=== PATIENT | male | born 1960 | race Caucasian/White ===

== ENCOUNTER → 2025-07-25 | Outpatient (CLI) | payer SELFPAY, OTHER ==
--- OUTSIDE RECORDS SUMMARY | 2025-07-25 07:04 | XMS RPT_ITS | CCD ---
Author Organization [facility] Care Team Providers Care Employee'S Representative Name Role Phone Brody NAVARRO, Fuad Lopez Unavailable Fuad Potts MD Unavailable [phone] [facility], . [facility] office Unavailable Dionne SENIOR CLERK, Delmis Unavailable Farhad SENIOR CLERK, Linda Unavailable Unavailable Sanchez NAVARRO, Wu Anand Unavailable Rosie NORMAN, Bony Laura Unavailable Kaye DUCKWORTH, Nicole Lopez Unavailable Unavaila ble Mimi DUCKWORTH, Claribel Y Unavailable Unavailable Agarwal SENIOR CLERK, Corina Unavailable Unavailable Fauzia SENIOR CLERK, Gita Unavailable Unavailab le Vess SENIOR CLERK, Neilee L Unavailable Unavailable Wengerd SENIOR CLERK, Amena Unavailable Unavailabl e [place] SENIOR CLERK, Denae N Unavailable Unavaila ble Unavailable Unavailable WANG ARRIOLA DR Admitting Unavailable WANG ARRIOLA DR Primary Care Unavailable WANG ARRIOLA DR Attending Unavailable VACCARIELLO, FUAD Consulting Unavailable PROVIDER, UNKNOWN Consulting Unavailable PROVIDER, UNKNOWN Consulting Unavailable PROVIDER, UNKNOWN Consulting Unavailable WANG ARRIOLA DR Primary Care Unavailable WANG ARRIOLA DR Attending Unavailable WANG ARRIOLA DR Admitting Unavailable VACCARIELLO, FUAD Consulting Unavailable PROVIDER, UNKNOWN Consulting Unavailable PROVIDER, UNKNOWN Consulting Unavailable PROVIDER, UNKNOWN Consulting Unavailable WANG ARRIOLA DR Admitting Unavailable WANG ARRIOLA DR Primary Care Unavailable WANG ARRIOLA DR Attending Unavailable VACCJOHNNY, FUAD Consulting Unavailable PROVIDER, UNKNOWN Consulting Unavailable PROVIDER, UNKNOWN Consulting Unavailable PROVIDER, UNKNOWN Consulting Unavailable MY, ARGELIA PAC Admitting Unavailable MY, ARGELIA PAC Primary Care Unavailable MY, ARGELIA PAC Attending Unavailable VACCARIELLO, FUAD Consulting Unavailable PROVIDER, UNKNOWN Consulting Unavailable PROVIDER, UNKNOWN Consulting Unavailable PROVIDER, UNKNOWN Consulting Unavailable Allergies Allergy Classification Reported Allergen(s) Allergy Type Date of Onset Reaction(s) Facility (4 sources) Morphine Drug Allergy Nausea [facility]; [facility] Medications Completed/Discontinued Medications Medication Drug Class(es) Dates Sig (Normalized) Sig (Original) amoxicillin 875 mg / clavulanate 125 mg oral tablet (4 sources) Penicillin-class Antibacterial Start: 11-26-2021 End: 12-06-2021 take 1 tablet by mouth twice daily Amoxicillin-Pot Clavulanate 875-125 MG Oral Tablet ; 1 (one) Tablet BID for 10 days Quantity: 20 {Tablet} Refills: 0 Ordered: 26-Nov-2021 MEERSON Velez Start: 26-Nov-2021 End: 06-Dec-2021 Status: Inactive warfarin sodium 5 mg oral tablet (4 sources) Vitamin K Antagonist Start: 06-24-2015 End: 11-26-2021 take 1 tablet by mouth once daily COUMADIN, 5MG (Oral Tablet) ; 1 Tablet daily or as directed for 0 days Quantity: 30 {Tablet} Refills: 11 Ordered: 24-Jun-2015 MD Fuad Potts Start: 24-Jun-2015 End: 26-Nov-2021 Status: Discontinued Comments: This order discontinued per [facility]. Comment on above: This order discontin ued per [employer]. Problems Active Problems Problem Classification Problem Date Documented Da te Episodic/Chronic Open wounds of extremities (8 sources) Open wound of hand with tendon involvement; Translations: [Laceration without foreign body of right hand, sequela] 11-26-2021 Episodic Phlebitis; thrombophlebitis and thromboembolism (20 sources) Thrombophlebitis of deep vein of right lower limb; Translations: [Phlebitis and thrombophlebitis of unspecified deep vessels of right lower extremity] 11-26-2021 Episodic Pulmonary heart disease (20 sources) Pulmonary embolism; Translations: [Other pulmonary embolism without acute cor pulmonale] Onset: 4 11-26-2021 Episodic Past or Other Problems Problem Classification Problem Date Documented Da te Episodic/Chronic Unclassified (4 sources) Laceration - The injury occurred on : (11/25/2021). The laceration is described as moderate. The occurrence was sudden following an incident at home . It is located on the dorsal hand (right). The approximate length of the laceration is 2 cm. The injury is accompanied by redness and swelling . Note for Laceration: pt is concerned about the swelling and that when he picks his hand up his finger drops and he cant lift it up. 11-26-2021 Unclassified (4 sources) Follow up consultation - The patient is here to follow-up after hospitalization ([facility]. Diagnosis: Acute PE right lower lobe; Acute DVT RLE. Currently on COumadin 5 mg daily.) on : (Admitted 03/24/14 and Discharged 03/28/14). Note for Consultation follow-up: Pt is not having any chest pain at this time. Does have right sided chest pain whenever he lays on right side. No SOB Pulse oX 97%. Denies any leg pain but feels it may be slightly swollen in right foot if he has leg down or up on it. 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 03-29-2014 Results Test Name Value Interpretation Reference Range Facility OPERATIVE PROCEDURESon 01-08 OPERATIVE PROCEDURES [facility] OPERATIVE REPORT NAME ACCOUNT SEX AGE ADMIT DISCHARGE PT MED. RECORD# NUMBER DATE DATE TYPE MONTSERRAT MARTINEZ [id number] M 64 01/01/25 2 15010 ROOM: [facility] DATE OF : 1960 DICTATING PHYSICIAN: Wang Arriola DATE OF SURGERY: January 01, 2025 SURGEON: Wang Arriola MD DIE MACHINE OPERATOR: Argelia Fermin PA-C ANESTHESIOLOGIST: Christian Palafox CRNA ANESTHETIC: General, peripheral nerve block. PREOPERATIVE DIAGNOSES: Right ankle displaced distal fibula fracture and syndesmosis disruption with deltoid ligament tear. POSTOPERATIVE DIAGNOSES: Right ankle displaced distal fibula fracture and syndesmosis disruption with deltoid ligament tear. OPERATION PERFORMED: Right ankle open reduction and internal fixation distal fibula with open reduction and internal fixation syndesmosis disruption. COMPLICATIONS: None. ESTIMATED BLOOD LOSS: Less than 20. SPECIAL MEDICATIONS: Ancef 2 grams. INDICATIONS FOR SURGERY: The patient is a 64-year-old male who injured his right ankle recently. He was diagnosed with an unstable ankle fracture pattern, and he wished to have surgery. Appropriate informed consent was obtained and signed. FINDINGS: Findings were consistent with a displaced distal fibula fracture with syndesmosis disruption and deltoid ligament tear. He underwent Arthrex FibuLock retrograde nailing of the fibula under anatomic conditions. He underwent TightRope Fixation for the syndesmosis disruption, which stabilized the deltoid ligament disruption as well. He underwent standard wound closure, followed by rima, followed by being placed back in his boot. assistant manager bilingual, physician casino assistant manager, was utilized throughout the entire procedure. Page 1 of 3 MONTSERRAT MARTINEZ Operative Report MONTSERRAT MARTINEZ : 1960 She helped with patient positioning, holding of limb, and holding of retractors. She helped with exposure throughout. She helped with insertion of devices, fixation of syndesmosis, wound closure, and bandage and brace application. Without licensed sales assistant, surgical time would have been significantly increased. Surgical outcome could have been less optimal. DESCRIPTION OF OPERATION: The patient was taken to the OR and transferred to the OR table. He was given a general anesthetic. Appropriate time-out was performed. He had previously been given a nerve block. He had a well-padded tourniquet applied to the right upper thigh, which was not inflated. Fluoroscopy was brought in. We confirmed an unstable fracture pattern with deltoid ligament tear and syndesmosis injury. This was done with stress view. Once this was done, the right lower extremity was prepped, padded, and draped in the usual orthopedic sterile fashion for the procedure. We did use Betadine solution for prep based on his soft tissue abrasions that he had at the time of the injury. The patient was taken to the OR and transferred to the table. He was given his anesthetic and appropriately prepped and draped as above. Appropriate time-out was performed. We mapped out our incisions based on fluoroscopic guidance. We made a longitudinal incision at the fracture site, which was several centimeters below his abrasion. We came down and carefully dissected out the fracture site, irrigated it, reduced it with the bone reduction clamp. Once this was done, fluoroscopic images confirmed that. We then made a longitudinal incision distal to the tip of the fibula. Carful blunt dissection brought us down on the tip of the fibula. We placed a guide pin from the tip of the fibula across the fracture site into the proximal fibular shaft. Once this was done, we used the appropriate reamer for the long Arthrex FibuLock nail. Once that was done, we had also previously done the distal reaming in the fibula. Next, the nail was placed after the guide tony had been removed. It seated up fully. We confirmed its position. We then deployed the talons in the nail proximally. We then placed the two distal cross locking screws from lateral to medial under standard sterile technique. We then stressed the ankle and found there still to be instability distally. We now placed a drill bit across the distal tibia for the TightRope device. Once this was done, the outrigger device for the nail was removed. We placed the TightRope device through the previously drilled hole and tightened it down under standard technique with the help of the casino assistant manager stabilizing the ankle in a good position. Once that was tight, we placed the ankle through a full range of motion plantar flexion, dorsiflexion, inversion, and eversion. We did a cotton stress test, as well as an external stress test, and found the ankle mortise to be stable both at the deltoid ligament region, as well as at the syndesmosis. Once this was done, the sutures from the TightRope were cut off outside of the lateral button. We had con (more content not included)... Normal [facility] C-ARM USAGE 1 HOUR 025 C-ARM USAGE 1 HOUR [place] [id number] Patient: MONTSERRAT MARTINEZCorbin Phone#: : 1960 Age: 64 Gender: M Pt. Type: Out Account: [id number] Location: 062 Ordering: WANG ARRIOLA Exam Date: 01/01/2025/11:51 Family Phys: FUAD POTTS Charge Code: 212189 Physician: [place] Order #: [id number] Dose#: 5.74 mGy PROCEDURE: C-ARM USEAGE 1 HR COMPARISON: None. INDICATIONS: Surgery. TOTAL DOSE: 5.74 mGy FINDINGS: IMAGES: BONES: Internal fixation of the distal fibula. SOFT TISSUES: Negative. No visible soft tissue swelling. EFFUSION: None visible. OTHER: Negative. CONCLUSION: 1. Internal fixation of the distal fibula. Dictated by: Lakeshia Kirk MD on 01/01/2025 at 14:40 Approved by: Lakeshia Kirk MD on 01/01/2025 at 14:41 Normal [facility] BMP with eGFRon 12-31-2024 AGE 64 years Normal [facility] Comment on above: Performed By: #### 2 [id number] #### [facility],[address] [place] [address] 42275 Anion gap [Moles/Vol] 8 mmol/L Low 10 - 20 [facility] Comment on above: Performed By: #### 2 54342 #### [facility],[address] [place] [address] 05577 BMP with eGFR Normal [facility] Comment on above: Result Comment: BASI C METABOLIC PANEL Performed By: #### 2 39072 #### [facility],[address] [place] [address] 88079 Calcium [Mass/Vol] 9.3 mg/dL Normal 8.5 - 10.1 [facility] Comment on above: Performed By: #### 2 21970 #### [facility],[address] [place] [address] 87095 Chloride [Moles/Vol] 101 mmol/L Normal 98 - 107 [facility] Comment on above: Performed By: #### 2 84652 #### [facility],[address] [place] [address] 11412 CO2 [Moles/Vol] 33.7 mmol/L High 21.0 - 32.[address] [facility] Comment on above: Performed By: #### 2 21117 #### [facility],[address] [place] [address] 85323 Creatinine [Mass/Vol] 0.98 mg/dL Normal 0.70 - 1.[address] [facility] Comment on above: Performed By: #### 2 58580 #### [facility],[address] [place] [address] 08072 GFR/1.73 sq M.predicted among non-blacks MDRD (S/P/Bld) [Vol rate/Area] mL/min/{1.73_m2} Normal 60 - 999 [facility] Comment on above: Performed By: #### 2 37383 #### [facility],[address] [place] [address] 86338 Result Comment: ACCO RDING TO THE NATIONAL KIDNEY DISEASE EDUCATION PROGRAM(NKDE), A NORMAL eGFR IS A VALUE GREATER THAN OR EQUAL TO 60 ML/MIN/1.73 SQ METERS. CHRONIC KIDNEY DISEASE: <60mL/MIN/1.73 SQ METERS KIDNEY FAILURE: <15mL/MIN/1.73 SQ METERS THIS TEST SHOULD ONLY BE USED FOR PATIENTS 18 YEARS OF AGE AND OLDER. Glucose [Mass/Vol] 96 mg/dL Normal 74 - 106 [facility] Comment on above: Performed By: #### 2 25251 #### [facility],[address] [place] [address] 78451 Potassium [Moles/Vol] 4.4 mmol/L Normal 3.5 - 5.1 [facility] Comment on above: Performed By: #### 2 20657 #### [facility],[address] [place] [address] 15229 Sodium [Moles/Vol] 138 mmol/L Normal 136 - 145 [facility] Comment on above: Performed By: #### 2 98065 #### [facility],[address] [place] [address] 22489 Urea nitrogen [Mass/Vol] 17 mg/dL Normal 7 - 18 [facility] Comment on above: Performed By: #### 2 19595 #### [facility],[address] [place] [address] 77050 CBC + DIFFon 12-31-2024 Baso # 0.01 x10EE3/UL Normal 0.00 - 0.10 [facility] Comment on above: Performed By: #### 2 05118 #### [facility],[address] [place] [address] 09788 Basophils/100 WBC (Bld) 0.2 % Normal 0.0 - 2.0 [facility] Comment on above: Performed By: #### 2 14830 #### [facility],[address] [place] [address] CBC + DIFF Normal [facility] Comment on above: Result Comment: CBC- COMPLETE BLOOD COUNT Performed By: #### 2 13612 #### [facility],[address] [place] [address] EO # 0.15 x10EE3/UL Normal 0.00 - 0.50 [facility] Comment on above: Performed By: #### 2 77430 #### [address] [address] Eosinophils/100 WBC (Bld) 2.5 % Normal 0.0 - 7.0 [facility] Comment on above: Performed By: #### 2 46035 #### [facility],[address] [place] [address] Erythrocyte distribution width (RBC) [Ratio] 12.4 % Normal 12.0 - 15.6 [facility] Comment on above: Performed By: #### 2 85346 #### [facility],[address] [place] [address] Hematocrit (Bld) [Volume fraction] 38.4 % Low 40.0 - 52.0 [facility] Comment on above: Performed By: #### 2 86085 #### [facility],[address] [place] [address] 82431 Hemoglobin (Bld) [Mass/Vol] 13.4 g/dL Normal 13.0 - 17.5 [facility] Comment on above: Performed By: #### 2 85987 #### [facility],[address] [place], [place] [id number] Lymph # 0.70 x10EE3/UL Low 0.80 - 2.80 [facility] Comment on above: Performed By: #### 2 60980 #### [facility],[address] [place] [address] 55147 Lymphocytes/100 WBC (Bld) 11.9 % Low 20.0 - 45.0 [facility] Comment on above: Performed By: #### 2 06151 #### [facility],[address] [place] [address] 98502 MANUAL DIFF N/A Normal [facility] Comment on above: Performed By: #### 2 16216 #### [facility],[address] [place] [address] MCH (RBC) [Entitic mass] 32 pg Normal 27 - 33 [facility] Comment on above: Performed By: #### 2 84603 #### [place] [address] MCHC 35 X10 3 Normal 32 - 36 [facility] Comment on above: Performed By: #### 2 49378 #### [address] [address] MCV (RBC) [Entitic vol] 92 fL Normal 81 - 98 [facility] Comment on above: Performed By: #### 2 82729 #### [facility],[address] [place] [address]253 Payette # 0.44 x10EE3/UL Normal 0.20 - 1.00 [facility] Comment on above: Performed By: #### 2 88042 #### [address] [address] MONOS % 7.5 % Normal 0.0 - 10.0 [facility] Comment on above: Performed By: #### 2 06628 #### [facility],[address] [place] [address] 74900 Morphology Ko (Bld) [Interp] N/A Normal [facility] Comment on above: Performed By: #### 2 80822 #### [facility],[address] [place] [address] 71776 Neut # 4.56 x10EE3/UL Normal 1.50 - 7.10 [facility] Comment on above: Performed By: #### 2 10284 #### [facility],[address] [place] [address] 50456 Neutrophils/100 WBC (Bld) 77.9 % High 46.0 - 76.0 [facility] Comment on above: Performed By: #### 2 63347 #### [facility],[address] [place] [address] 05228 PLATELET 243 x10EE3/UL Normal 150 - 450 [facility] Comment on above: Performed By: #### 2 25855 #### [address] [address] Platelet mean volume (Bld) [Entitic vol] 7.0 fL Normal 6.4 - 10.[address] [facility] Comment on above: Result Comment: AUTO MATED DIFFERENTIAL Performed By: #### 2 02216 #### [facility],[address] [place] [address] 34339 RBC 4.16 x 10EE6/UL Low 4.50 - 6.00 [facility] Comment on above: Performed By: #### 2 00037 #### [facility],[address] [place] [address] 74570 WBC 5.9 x 10EE3/UL Normal 4.5 - 10.8 [facility] Comment on above: Performed By: #### 2 84129 #### [address] [address] CHEST 2 VIEWSon 12-31-2024 CHEST 2 VIEWS [place] [address] Patient: MONTSERRAT MARTINEZ Phone#: : 1960 Age: 64 Gender: M Pt. Type: Out Account: [id number] Location: 011 Ordering: WANG ARRIOLA Exam Date: 12/31/2024/10:02 Family Phys: FUAD POTTS Charge Code: [id number] Physician: [place] Order #: [id number] Dose#: PROCEDURE: X-RAY CHEST 2 VIEWS COMPARISON: None. INDICATIONS: Pre-op. FINDINGS: LUNGS: Normal. No significant pulmonary parenchymal abnormalities. VASCULATURE: Normal. Unremarkable pulmonary vasculature. CARDIAC: Normal. No cardiac silhouette abnormality or cardiomegaly. MEDIASTINUM: Normal. No visible mass or adenopathy. PLEURA: Normal. No effusion or pleural thickening. BONES: Normal. No fracture or visible bony lesion. OTHER: Negative. CONCLUSION: No acute disease. Dictated by: Lakeshia Kirk MD on 12/31/2024 at 10:11 Approved by: Lakeshia Kirk MD on 12/31/2024 at 10:11 Normal [facility] Laboratory - Coagulationon 0 08-28-2015 INR Coag (PPP) [Relative time] 1.9 {INR} Normal [employer], [employer]. No Panel Informationon 08-28 COMMENTS Had [facility] on 08/25/[address] Rodney Normal [employer]. COMMENTS 2 pt is to call after f/u appt on 09/01/14 with resul Normal [employer].; [employer], [employer]. COMMENTS 3 - Normal [employer].; [employer] DIAGNOSIS DVT Normal [employer].; [employer] DOSE 20mg/week Normal [employer].; [employer]. NEW DOSE same Normal [employer].; [employer], [employer]. NEXT APPT dependent upon doppler results [employer].; [employer] NURSE INITIALS LEONARDO Normal [facility] [employer].; [employer], [employer]. SUPERVISING PROVIDER MERYL Normal [facility] [employer].; [employer]. TARGET RANGE 2-3 Normal [employer].; [employer], [employer]. Laboratory - Coagulationon 1 10-01-2014 INR Coag (PPP) [Relative time] 2.0 {INR} Normal [employer].; [employer], [employer]. No Panel Informationon 07-31 COMMENTS -- Normal [employer] COMMENTS 2 -- Normal [employer].; [employer] COMMENTS 3 -- Normal [employer].; [employer]. DIAGNOSIS dvt I80.201 Normal [employer].; [employer], [employer]. DOSE 20mgqwk Normal [employer].; [employer]. NEW DOSE 20mgqwk Normal [employer].; [employer] NEXT APPT 4 wk Normal [employer].; [employer]. NURSE INITIALS [facility] Normal [employer].; [employer]. SUPERVISING PROVIDER meryl Normal [employer].; [employer]. TARGET RANGE 2-3 Normal [employer].; [employer] Laboratory - Coagulationon 1 09-02-2014 INR Coag (PPP) [Relative time] 2.2x Normal [employer].; [employer], [employer]. No Panel Informationon 07-03 COMMENTS dose reviewed Normal [employer] [facility] [employer].; [employer] COMMENTS 2 -- Normal [employer].; [employer]. COMMENTS 3 -- Normal [employer].; [employer]. DIAGNOSIS dvt Normal [employer].; [employer]. DOSE 20mgqwk Normal [employer].; [employer]. NEW DOSE 20mgqwk Normal [employer].; [employer], [employer]. NEXT APPT 4 wk Normal [employer].; [employer]. NURSE INITIALS [facility] Normal [employer].; [employer]. SUPERVISING PROVIDER meryl Normal [employer].; [employer] TARGET RANGE 2-3 Normal [employer].; [employer] Laboratory - Coagulationon 1 INR Coag (PPP) [Relative time] 2.6 {INR} Normal [employer] No Panel Informationon 06-05 COMMENTS no change Normal [employer].; [employer] COMMENTS 2 dose confirmed Normal [employer].; [employer]. COMMENTS 3 - Normal [employer].; [employer] DIAGNOSIS DVT/PE Normal [employer].; [employer] DOSE 20mg/week Normal [employer].; [employer]. NEW DOSE same Normal [employer].; [employer]. NEXT APPT 4 weeks Normal [employer].; [employer] NURSE INDIO PATTERSON Normal [employer].; [employer] SUPERVISING PROVIDER MERYL Normal [employer].; [employer] TARGET RANGE 2-3 Normal [employer].; [employer] Laboratory - Coagulationon 0 05-07-2015 INR Coag (PPP) [Relative time] 2.3 {INR} Normal [employer].; [employer] No Panel Informationon 05-07 COMMENTS no change Normal [employer].; [employer]. COMMENTS 2 - Normal [employer].; [employer] COMMENTS 3 - Normal [employer].; [employer] DIAGNOSIS DVT/PE Normal [employer].; [employer] DOSE 20mg/week Normal [employer].; [employer] NEW DOSE same Normal [employer].; [employer]. NEXT APPT 4 weeks Normal [employer].; [employer] NURSE INDIO PATTERSON Normal [employer].; [employer], [employer]. SUPERVISING PROVIDER MERYL Normal [employer].; [employer] TARGET RANGE 2-3 Normal [employer].; [employer] Laboratory - Coagulationon 0 04-09-2015 INR Coag (PPP) [Relative time] 2.5 {INR} Normal [employer] No Panel Informationon 04-09 COMMENTS no change Normal [employer].; [employer] COMMENTS 2 dose confirmed Normal [employer].; [employer]. COMMENTS 3 - Normal [employer].; [employer] DIAGNOSIS PE/DVT Normal [employer].; [employer] DOSE 20mg/week Normal [employer].; [employer] NEW DOSE same Normal [employer].; [employer]. NEXT APPT 4 weeks Normal [employer].; [employer] NURSE INDIO PATTERSON Normal [employer].; [employer] SUPERVISING PROVIDER MERYL Normal [employer].; [employer]. TARGET RANGE 2-3 Normal [employer].; [employer] Laboratory - Coagulationon 0 03-12-2015 INR Coag (PPP) [Relative time] 2.2 {INR} Normal [employer].; [employer] No Panel Informationon 03-12 COMMENTS no change Normal [employer].; [employer] COMMENTS 2 dose confirmed Normal [employer].; [employer]. COMMENTS 3 - Normal [employer].; [employer] DIAGNOSIS PE/DVT Normal [employer].; [employer] DOSE 20mg/week Normal [employer].; [employer] NEW DOSE same Normal [employer].; [employer]. NEXT APPT 4 weeks Normal [employer].; [employer] NURSE INDIO PATTERSON Normal [employer].; [employer], [employer]. SUPERVISING PROVIDER MERYL Normal [employer].; [employer], [employer]. TARGET RANGE 2-3 Normal [employer].; [employer] Laboratory - Coagulationon 0 02-12-2015 INR Coag (PPP) [Relative time] 2.5 {INR} Normal [employer].; [employer] No Panel Informationon 02-12 COMMENTS dose confirmed Normal [employer].; [employer]. COMMENTS 2 - Normal [employer].; [employer]. COMMENTS 3 - Normal [employer].; [employer]. DIAGNOSIS PE/DVT Normal [employer].; [employer] DOSE 20mg/week Normal [employer].; [employer] NEW DOSE same Normal [employer].; [employer], [employer]. NEXT APPT 4 weeks Normal [employer].; [employer] NURSE INITIALDora PATTERSON Normal [employer].; [employer], [employer]. SUPERVISING PROVIDER MERYL Normal [employer].; [employer], [employer]. TARGET RANGE 2-3 Normal [employer].; [employer] Laboratory - Coagulationon 0 01-15-2015 INR Coag (PPP) [Relative time] 2.2 {INR} Normal [employer].; [employer] No Panel Informationon 01-15 COMMENTS dose confirmed Normal [employer].; [employer] COMMENTS 2 - Normal [employer].; [employer], [employer]. COMMENTS 3 - Normal [employer].; [employer], [employer]. DIAGNOSIS PE/DVT Normal [employer].; [employer] DOSE 20mg/week Normal [employer].; [employer] NEW DOSE same Normal [employer].; [employer]. NEXT APPT 4 weeks Normal [employer].; [employer] NURSE INITIALS LEONARDO Normal Alvarez [facility] [employer].; [employer], [employer]. SUPERVISING PROVIDER MERYL Normal [employer].; [employer], [employer]. TARGET RANGE 2-3 Normal [employer].; [employer] Laboratory - Coagulationon 0 12-19-2014 INR Coag (PPP) [Relative time] 2.5 {INR} Normal [employer].; [employer] No Panel Informationon 12-19 COMMENTS -- Normal [employer].; [employer]. COMMENTS 2 -- Normal [employer].; [employer]. COMMENTS 3 --n Normal [employer].; [employer] DIAGNOSIS pe/dvt Normal [employer].; [employer] DOSE 20mgqwk Normal [employer].; [employer] NEW DOSE 20mgqwk Normal [employer].; [employer] NEXT APPT 4 wk Normal [employer].; [employer] NURSE INITIALS msh Normal [employer].; [employer], [employer]. SUPERVISING PROVIDER meryl Normal [employer].; [employer] TARGET RANGE 2-3 Normal [employer].; [employer] Laboratory - Coagulationon 0 11-21-2014 INR Coag (PPP) [Relative time] 2.5 {INR} Normal [employer].; [employer] No Panel Informationon 11-21 COMMENTS dose confirmed Normal [employer].; [employer] COMMENTS 2 -- Normal [employer].; [employer]. COMMENTS 3 -- Normal [employer].; [employer] DIAGNOSIS PE/DVT Normal [employer].; [employer] DOSE 20mg/wk Normal [employer].; [employer] NEW DOSE same Normal [employer].; [employer]. NEXT APPT 4 weeks Normal [employer].; [employer] NURSE INITIALS LEONARDO Normal Alvarez [facility] [employer].; [employer], [employer]. SUPERVISING PROVIDER ermias Normal [employer].; [employer], [employer]. TARGET RANGE 2-3 Normal [employer].; [employer] Laboratory - Coagulationon 0 10-24-2014 INR Coag (PPP) [Relative time] 2.2 {INR} Normal [employer].; [employer] No Panel Informationon 10-24 DIAGNOSIS pe Normal [employer].; [employer] DOSE 20mg qwk Normal [employer].; [employer] NEW DOSE no change Normal [employer].; [employer]. NEXT APPT 4 wks Normal [employer].; [employer] NURSE INITIALS see Normal Alvarez [facility] [employer].; [employer] SUPERVISING PROVIDER meryl Normal [employer].; [employer], [employer]. TARGET RANGE 2-3 Normal [employer].; [employer] Laboratory - Coagulationon 0 09-25-2014 INR Coag (PPP) [Relative time] 2.5 {INR} Normal [employer].; [employer] No Panel Informationon 09-25 COMMENTS no change Normal [employer].; [employer]. COMMENTS 2 dose confirmed Normal [employer].; [employer]. COMMENTS 3 - Normal [employer].; [employer] DIAGNOSIS pe Normal [employer].; [employer] DOSE 20mg/wk Normal [employer].; [employer] NEW DOSE same Normal [employer].; [employer] NEXT APPT 1 month Normal [employer].; [employer] NURSE INITIALS nv Normal [employer].; [employer], [employer]. SUPERVISING PROVIDER meryl Normal [facility] [employer].; [employer], [employer]. TARGET RANGE 2-3 Normal [employer].; [employer], [employer]. Laboratory - Coagulationon 0 08-28-2014 INR Coag (PPP) [Relative time] 2.6 {INR} Normal [employer].; [employer], [employer]. No Panel Informationon 08-28 COMMENTS no change Normal [employer].; [employer], [employer]. COMMENTS 2 dose confirmed Normal Alvarez [facility] [employer].; [employer], [employer]. COMMENTS 3 pt states his 6mos is almost up Normal [employer].; [employer], [employer]. DIAGNOSIS pe Normal [employer].; [employer] DOSE 20mg/wk Normal [employer].; [employer] NEW DOSE same Normal [employer].; [employer] NEXT APPT 4weeks Normal [employer].; [employer] NURSE INITIALS nv Normal [facility] [employer].; [employer], [employer]. SUPERVISING PROVIDER meryl Normal [employer].; [employer], [employer]. TARGET RANGE 2-3 Normal [employer].; [employer] Laboratory - Coagulationon 1 10-02-2013 INR Coag (PPP) [Relative time] 2.2 {INR} Normal [employer].; [employer], [employer]. No Panel Informationon 08-01 COMMENTS -- Normal [employer].; [employer] COMMENTS 2 dose reviewed Normal [employer] [facility] [employer].; [employer]. COMMENTS 3 -- Normal [employer].; [employer]. DIAGNOSIS pe Normal [employer].; [employer] DOSE 20mgqwk Normal [employer].; [employer] NEW DOSE 20mgqwk Normal [employer].; [employer]. NEXT APPT 3 wk Normal [employer].; [employer], [employer]. NURSE INITIALS [facility] Normal [facility].; [employer], [employer]. SUPERVISING PROVIDER meyrl Normal [facility] [employer].; [employer], [employer]. TARGET RANGE 2-3 Normal [facility] [employer].; [employer] Laboratory - Coagulationon 1 09-15-2013 INR Coag (PPP) [Relative time] 1.5 {INR} Normal [employer].; [employer] No Panel Informationon 07-16 COMMENTS dose reviewed Normal [facility] [employer].; [employer]. COMMENTS 2 -- Normal [employer].; [employer]. COMMENTS 3 -- Normal [employer].; [employer] DIAGNOSIS pe Normal Alvarez[employer].; [employer] DOSE 2.5mg daily Normal [employer].; [employer] NEW DOSE 20mgqwk Normal [employer].; [employer]. NEXT APPT 2 wks Normal [employer].; [employer]. NURSE INITIALS [facility] Normal [facility] [employer].; [employer], [employer]. SUPERVISING PROVIDER ermias Normal [facility] [employer].; [employer] TARGET RANGE 2-3 Normal Alvarez [facility] [employer].; [employer] Laboratory - Coagulationon 1 INR Coag (PPP) [Relative time] 2.5 {INR} Normal [employer].; [employer] No Panel Informationon 06-18 COMMENTS -- Normal [employer].; [employer]. COMMENTS 2 -- Normal [employer].; [employer]. COMMENTS 3 -- Normal [employer].; [employer] DIAGNOSIS pe Normal [employer].; [employer] DOSE 2.5mgqday Normal [employer].; [employer] NEW DOSE 2.5mgqday Normal [employer].; [employer], [employer]. NEXT APPT 4wk Normal [employer].; [employer] NURSE INITIALS msh Normal [employer].; [employer], [employer]. SUPERVISING PROVIDER meryl Normal [employer].; [employer], [employer]. TARGET RANGE 2-3 Normal [employer].; [employer] Laboratory - Coagulationon 0 05-21-2014 INR Coag (PPP) [Relative time] 2.0 {INR} Normal [employer].; [employer] No Panel Informationon 05-21 COMMENTS - Normal [employer].; [employer], [employer]. COMMENTS 2 - Normal [employer].; [employer] COMMENTS 3 - Normal [employer].; [employer] DIAGNOSIS pe Normal [employer].; [employer] DOSE 2.5mg/wk Normal [employer].; [employer]. NEW DOSE no change Normal [employer].; [employer] NEXT APPT 4 wks Normal [employer].; [employer] NURSE INITIALS jw Normal [employer].; [employer], [employer]. SUPERVISING PROVIDER meryl Normal [employer].; [employer], [employer]. TARGET RANGE 2-3 Normal [employer].; [employer] Laboratory - Coagulationon 0 04-30-2014 INR Coag (PPP) [Relative time] 2.0 {INR} Normal [employer].; [employer] No Panel Informationon 04-30 COMMENTS missed dose Normal [employer].; [employer] COMMENTS 2 tuesday Normal [employer].; [employer]. COMMENTS 3 confirmed dose Normal [employer].; [employer] DIAGNOSIS PE and DVT Normal [employer].; [employer] DOSE 2.5mg qd Normal [employer].; [employer] NEW DOSE 2.5mg qd Normal [employer].; [employer], [employer]. NEXT APPT 3 wks Normal [employer].; [employer]. NURSE INITIALS ljb Normal [facility] [employer].; [employer], [employer]. SUPERVISING PROVIDER meryl Normal [facility] [employer] [facility] [employer].; [employer], [employer]. TARGET RANGE 2-3 Normal [employer].; [employer] Laboratory - Coagulationon 0 04-16-2014 INR Coag (PPP) [Relative time] 2.9 {INR} Normal [employer].; [employer] No Panel Informationon 04-16 COMMENTS - Normal [employer].; [employer]. COMMENTS 2 - Normal [employer].; [employer]. COMMENTS 3 - Normal [employer].; [employer] DIAGNOSIS PE and DVT Normal [employer].; [employer] DOSE 2.5mg qd Normal [employer].; [employer] NEW DOSE same Normal [employer].; [employer]. NEXT APPT 1-2 wks Normal [employer].; [employer]. NURSE INITIALS lb [facility] [employer], [employer]. SUPERVISING PROVIDER meryl Normal [employer].; [employer] TARGET RANGE 2-3 Normal [employer].; [employer] Laboratory - Coagulationon 0 04-08-2014 INR Coag (PPP) [Relative time] 2.5mg qd Normal [employer].; [employer] No Panel Informationon 04-08 COMMENTS - Normal [employer].; [employer]. COMMENTS 2 - Normal [employer].; [employer]. COMMENTS 3 - Normal [employer].; [employer] DIAGNOSIS pe Normal [employer].; [employer] DOSE 3.3 Normal [employer].; [employer]. NEW DOSE no chagne Normal [employer].; [employer]. NEXT APPT 1 wk Normal [employer].; [employer]. NURSE INITIALS jw Normal Alvarez [facility] [employer].; [employer]. SUPERVISING PROVIDER meryl Normal [employer].; [employer]. TARGET RANGE 2-3 Normal [employer].; [employer]. Laboratory - Coagulationon 0 04-04-2014 INR Coag (PPP) [Relative time] 3.3 {INR} Normal [employer].; [employer] No Panel Informationon 04-04 DIAGNOSIS pe Normal [employer].; [employer] DOSE 2.5mg qd Normal [employer].; [employer]. NEW DOSE no change Normal [employer].; [employer]. NURSE INITIALS mbs Normal Alvarez [facility] [employer].; [employer]. SUPERVISING PROVIDER meryl Normal [employer].; [employer]. TARGET RANGE 2-3 Normal [employer] Inc.; [employer]. Laboratory - Coagulationon 0 04-03-2014 INR Coag (PPP) [Relative time] 3.3 {INR} Normal [employer].; [employer] No Panel Informationon 04-03 DIAGNOSIS pe Normal [employer].; [employer] DOSE 2.5 Normal [employer].; [employer]. NEW DOSE 2.5 today Normal [employer].; [employer]. NEXT APPT tomorrow 8-14 Normal [employer] [facility] [employer].; [employer]. NURSE INITIALS mbs Normal [facility] [employer].; [employer]. SUPERVISING PROVIDER meryl Normal [employer].; [employer]. TARGET RANGE 2-3 Normal [employer].; [employer]. Laboratory - Coagulationon 0 04-02-2014 INR Coag (PPP) [Relative time] 3.4 {INR} Normal [facility].; [employer], [employer]. No Panel Informationon 04-02 COMMENTS - Normal [facility] Inc.; [employer] COMMENTS 2 -- Normal [facility], [facility].; [employer]. DIAGNOSIS pe Normal [facility].; [employer] DOSE holding Normal [facility].; [employer]. NEW DOSE 2.5mg today Normal [facility].; [employer] NEXT APPT -- Normal [facility].; [employer], [employer]. NURSE INITIALS [facility] Normal [facility] [employer].; [employer], [employer]. SUPERVISING PROVIDER meryl Normal [facility] [employer].; [employer], [employer]. TARGET RANGE 2-3 Normal [facility].; [employer] No Panel InformationOrdered By: Amena Morse on 04-02-2014 COMMENTS 3 - Normal [facility] [employer].; [employer]. Laboratory - Coagulationon 0 04-01-2014 INR Coag (PPP) [Relative time] 4.6 {INR} Normal [facility].; [employer] No Panel Informationon 04-01 COMMENTS - Normal [facility].; [employer], [employer]. COMMENTS 2 - Normal [facility].; [employer] COMMENTS 3 - Normal [facility].; [employer]. DIAGNOSIS PE and DVT Normal [facility] [employer].; [employer]. DOSE 5 mg qd Normal Alvarez [employer].; [employer]. NEW DOSE skip dose today Normal [facility].; [employer] NEXT APPT 04/02/14 Normal [facility] [employer].; [employer]. NURSE INITIALS [facility] Normal [facility] [employer].; [employer], [employer]. SUPERVISING PROVIDER MERYL Normal [facility].; Alvarez[employer]du. TARGET RANGE 2-3 Normal [facility].; [employer]. Laboratory - Coagulationon 0 03-29-2014 INR Coag (PPP) [Relative time] 3.0 {INR} Normal [facility].; [employer]. No Panel Informationon 03-29 COMMENTS none Normal [facility].; [employer]. COMMENTS 2 none Normal [facility].; [employer]. COMMENTS 3 none Normal [facility].; [employer], [employer]. DIAGNOSIS PE and DVT Normal [facility].; [employer], [employer]. DOSE 5 mg daily Normal [facility].; [employer], [employer]. NEW DOSE no change Normal [facility].; [employer], [employer]. NEXT APPT 04/01/14-Tuesday Normal [facility].; [employer]varezMe[employer], [employer]. NURSE INITIALS rf Normal [facility].; [employer]. SUPERVISING PROVIDER sfb Normal [facility].; [employer]. TARGET RANGE 2-3 Normal [facility].; [employer]. Vital Signs Date Time Vital Sign Value Performing Clinician Facility 11-26-2021 10:02-0400 Body height 180.34 cm Corina Agarwal LPN [facility].; [employer]. 11-26-2021 10:02-0400 Body mass index (BMI) [Ratio] 23.15 kg/m2 Corina Agarwal LPN [facility].; [employer]. 11-26-2021 10:02-040 Body surface area Derived from formula 1.95 m2 Corina Agarwal LPN [place] [facility].; AlvarezJobydu. 11-26-2021 10:02040 Body temperature 97.5 [degF] Corina Agarwal LPN [place] [facility].; [employer]. Comment on above: Method: Tympanic 11-26-2021 10:02-0400 Body weight 75.3 kg Corina Agarwal LPN [facility], [employer].; [employer]. 11-26-2021 10:02-0400 Diastolic blood pressure 75 mm[Hg] Corina Agarwal LPN [facility].; [employer]. Comment on above: Patient Position: Sitting; Cuff Location : Right Arm; Cuff Size: Standard 11-26-2021 10:02-0400 Heart rate 65 /min Corina Agarwal LPN [facility], [employer].; [employer]. Comment on above: Pattern: Regular 11-26-2021 10:02-0400 Systolic blood pressure 119 mm[Hg] [facility].; [employer]. Comment on above: Patient Position: Sitting; Cuff Location : Right Arm; Cuff Size: Standard 03-29-2014 11:06-0400 Body weight 79.38 kg Fuad Potts MD Work Phone: [facility].; [employer]. 03-29-2014 11:06-0400 Diastolic blood pressure 85 mm[Hg] Fuad Potts MD Work Phone: [facility]varezjoblocal [facility].; [employer]. Comment on above: Patient Position: Sitting; Cuff Location : Left Arm; Cuff Size: Standard 03-29-2014 11:06-0400 Heart rate 73 /min Fuad Potts MD Work Phone: [facility]varezjoblocal [facility].; [employer]. Comment on above: Pattern: Regular 03-29-2014 11:06-0400 Inhaled oxygen concentration 21 % Fuad Potts MD Work Phone: [employer].; [employer]. Comment on above: Room air 03-29-2014 11:06-0400 SaO2% (BldA) [Mass fraction] 97 % Fuad Potts MD Work Phone: [facility]varezjoblocal [facility].; [employer]. 03-29-2014 11:06-0400 Systolic blood pressure 122 mm[Hg] Fuad Potts MD Work Phone: [employer]; [employer] Comment on above: Patient Position: Sitting; Cuff Location : Left Arm; Cuff Size: Standard Encounters Encounter Date Encounter Type Care Provider Facility Start: 05-03-2025 End: 05-03-2025 ambulatory ARGELIA FRAUSTO MY [facility] Start: 01-01-2025 End: 01-01-2025 ambulatory WANG ARRIOLA [facility] Start: 12-31-2024 End: 12-31-2024 Encounter for preprocedural cardiovascular examination WANG ARRIOLA [facility] Start: 12-31-2024 End: 12-31-2024 ambulatory WANG ARRIOLA [facility] Start: 11-26-2021 End: 11-26-2021 Office outpatient visit 15 minutes Fuad Potts MD Work Phone: [employer] Start: 08-28-2015 End: 08-28-2015 Nursing evaluation of patient and report Fuad Potts MD Work Phone: [employer] Start: 07-31-2015 End: 07-31-2015 Nursing evaluation of patient and report Fuad Potts MD Work Phone: [employer] Start: 07-03-2015 End: 07-03-2015 Nursing evaluation of patient and report Fuad Potts MD Work Phone: [employer] Start: 06-24-2015 End: 06-24-2015 Orders Fuad Potts MD Work Phone: [facility] Start: 06-05-2015 End: 06-05-2015 Nursing evaluation of patient and report Fuad Potts MD Work Phone: [employer] Start: 05-07-2015 End: 05-07-2015 Nursing evaluation of patient and report Fuad Potts MD Work Phone: [employer] Start: 04-09-2015 End: 04-09-2015 Nursing evaluation of patient and report Fuad Potts MD Work Phone: [employer] Start: 03-12-2015 End: 03-12-2015 Nursing evaluation of patient and report Fuad Potts MD Work Phone: [employer] Start: 02-12-2015 End: 02-12-2015 Nursing evaluation of patient and report Fuad Potts MD Work Phone: [employer] Start: 01-15-2015 End: 01-15-2015 Orders Fuad Potts MD Work Phone: [employer] Start: 12-19-2014 End: 12-19-2014 Nursing evaluation of patient and report Fuad Potts MD Work Phone: [employer] Start: 11-21-2014 End: 11-21-2014 Nursing evaluation of patient and report Fuad Potts MD Work Phone: [employer] Start: 10-25-2014 End: 10-25-2014 Orders Fuad Potts MD Work Phone: [employer] Start: 10-24-2014 End: 10-24-2014 Orders Fuad Potts MD Work Phone: [employer] Start: 10-24-2014 End: 10-24-2014 Nursing evaluation of patient and report Fuad Potts MD Work Phone: [employer] Start: 09-25-2014 End: 09-25-2014 Nursing evaluation of patient and report Fuad Potts MD Work Phone: [employer] Start: 08-28-2014 End: 08-28-2014 Nursing evaluation of patient and report Fuad Potts MD Work Phone: [employer] Start: 08-01-2014 End: 08-01-2014 Nursing evaluation of patient and report Fuad Potts MD Work Phone: [employer] Start: 07-16-2014 End: 07-16-2014 Nursing evaluation of patient and report Fuad Potts MD Work Phone: [employer] Start: 06-18-2014 End: 06-18-2014 Nursing evaluation of patient and report Fuad Potts MD Work Phone: [employer] Start: 05-21-2014 End: 05-21-2014 Nursing evaluation of patient and report Fuad Potts MD Work Phone: [employer] Start: 04-30-2014 End: 04-30-2014 Nursing evaluation of patient and report Fuad Potts MD Work Phone: [employer] Start: 04-17-2014 End: 04-17-2014 Orders Fuad Potts MD Work Phone: [employer] Start: 04-16-2014 End: 04-17-2014 Orders Fuad Potts MD Work Phone: [employer] Start: 04-08-2014 End: 04-08-2014 Nursing evaluation of patient and report Fuad Potts MD Work Phone: [employer] Start: 04-04-2014 End: 04-04-2014 Nursing evaluation of patient and report Fuad Potts MD Work Phone: [employer] Start: 04-03-2014 End: 04-03-2014 Nursing evaluation of patient and report Fuad Potts MD Work Phone: [employer] Start: 04-02-2014 End: 04-02-2014 Nursing evaluation of patient and report Fuad Potts MD Work Phone: [employer] Start: 04-01-2014 End: 04-01-2014 Nursing evaluation of patient and report Fuad Potts MD Work Phone: [employer] Start: 03-29-2014 End: 03-29-2014 Office outpatient visit 15 minutes Fuad Potts MD Work Phone: [employer] Procedures Date Procedure Procedure Detail Performing Clinician Start: 06-05-2015 End: 06-24-2015 Dup-scan xtr veins unilateral/limited study Fuad Potts MD Work Phone: Start: 01-15-2015 End: 02-12-2015 Dup-scan xtr veins unilateral/limited study Fuad Potts MD Work Phone: Start: 10-25-2014 End: 10-21-2015 Dup-scan xtr veins unilateral/limited study Fuad Potts MD Work Phone: Start: 10-24-2014 End: 10-21-2015 Ct thorax w/contrast material Fuad Potts MD Work Phone: Payers Date Payer Category Payer Unknown [id number] 1960 Unknown [id number] 1960 Unknown [id number] 1960 Unknown [id number] Unknown 42 Unknown Social History Date Type Detail Facility Tobacco Use: Tobacco Use: ; Never smoker. [facility], [employer].; [facility]. Male [facility], [facility].; [facility]. Work Phone: Never smoked tobacco [facility].; [facility]. Work Phone: Summary Purpose Family History No Family History Records Found Advance Directives No Advanced Directives Records Found Additional Source Comments (unrecognized sect ion and content) No Status Records Found INFORMATION SOURCE (unrecogn ized section and content) DATE CREATED AUTHOR 05/05/2025 [facility] FOR RECORDS PERTAINING TO PATIENTS WHO ARE OR HAVE BEEN ENROLLED IN A CHEMICAL DEPENDENCY/SUBSTANCEABUSE PROGRAM, SOME INFORMATION MAY BE OMITTED. This clinical summary was aggregated from multiple sources. Caution should be exercised in using it in the provision of clinical care. This summary normalizes information from multiple sources, and as a consequence, information in this document may materially change the coding, format and clinical context of patient data. In addition, data may be omitted in some cases. CLINICAL DECISIONS SHOULD BE BASED ON THE PRIMARY CLINICAL RECORDS. [facility] [employer] [facility]. provides no warranty or guarantee of the accuracy or completeness of information in this document.
--- NOTE | 2025-07-25 07:07 | MRI_ITS ---
PROCEDURE: LOWER EXT JOINT ONLY W/WO CONT 07/25/2025 REASON FOR EXAM: OSTEOMYELITIS, ANKLE AND FOOT TECHNIQUE: Procedure Code: [id number] Modality: MR Procedure: LOWER EXT JOINT ONLY W/WO CONT CONTRAST: 15 cc [place] COMPARISON: None FINDINGS: There is metallic artifact from hardware in the distal tibia and fibula with hardware fusion of the distal tibiofibular articulation, with chronic features. A component of marrow edema is not excluded. The anterior and posterior tibiofibular ligaments appear disrupted with a 0.5 cm corticated osteochondral fragment noted at the anterior tibiofibular ligament. The anterior and posterior talofibular ligaments show thickening and attenuation without significant laxity, chronic grade 2 sprains. The talar dome appears intact. The calcaneocuboid articulation appears intact. The Achilles and plantar fascia origins appear intact. There is no significant joint effusion. The peroneal tendons appear intact. The flexor and extensor tendons appear intact. There is no significant tenosynovitis. There is normal signal in the sinus tarsi. The deltoid ligament complex is ill-defined shows attenuation consistent with chronic grade 3 tears. There are no suspicious enhancing lesions. MRI/Lower Ext Joint Only W/WO Cont IMPRESSION: There is metallic artifact from hardware in the distal tibia and fibula with wolfe rdware fusion of the distal tibiofibular articulation, with chronic features. A component of marrow edema is not exclude d. Findings do not meet the criteria for osteomyelitis. The anterior and posterior tibiofibular ligaments appear disrupted with a 0.5 c m corticated osteochondral fragment noted at the anterior tibiofibular ligament. The anterior and posterior talofibular ligaments show thickening and attenuatio n without significant laxity, chronic grade 2 sprains. The calcaneocuboid articulation appears intact. The deltoid ligament complex is ill-defined shows attenuation consistent with c hronic grade 3 tears. Reading Location: [id number]
--- NOTE | 2025-07-25 07:31 | RAD_ITS ---
PROCEDURE: ORBITS FOR FOREIGN BODY 07/25/2025 REASON FOR EXAM: MRI CLEARANCE- POSSIBLE F.B. TECHNIQUE: Procedure Code: [id number]. Modality: DX Procedure: ORBITS FOR FOREIGN BODY COMPARISON: None. FINDINGS: Radiographs of the face and paranasal sinuses demonstrate symmetrically lucent paranasal sinuses and mastoid air cells bilaterally without fracture. No metallic periorbital foreign bodies. RAD/Orbits for Foreign Body IMPRESSION: No metallic periorbital foreign bodies to contraindicate an MRI. Reading Location: [id number]
== END | disposition home or self-care (01) ==
PROVIDERS: PCP Family Medicine; Referring Provider Orthopaedic Surgery; Visit Provider Orthopaedic Surgery
DX: S82.831D Other fracture of upper and lower end of right fibula, subsequent encounter for closed fracture with routine healing (principal); M86.8X7 Other osteomyelitis, ankle and foot; S82.451D Displaced comminuted fracture of shaft of right fibula, subsequent encounter for closed fracture with routine healing; S93.431D Sprain of tibiofibular ligament of right ankle, subsequent encounter
CPT/HCPCS: 70030; 73723; A9575